=== PATIENT | male | born 1995 | race Caucasian/White ===

== ENCOUNTER 2022-04-08 01:30 | Observation (INO) ==
[2022-04-08] MEDS ORDERED: KETOROLAC 30 MG/1 ML VIAL IV STA (01:41)
[2022-04-08] MEDS ORDERED: SODIUM CHLORIDE 0.9% 1,000 ML IV STA (01:41)
[2022-04-08 02:18] LABS: Basophils # 0.1 10*3/uL (0.0-0.2); Basophils % 0.6 % (0.0-0.8); Eosinophils # 0.2 10*3/uL (0.0-0.87); Eosinophils % 1.7 % (0.00-10.9); Hemoglobin 15.3 GM/DL (14.0-18.0); Immature Granulocytes % 0.4 %; Immature Granulocytes Absolute 0.04 #; Lymphocytes % 26.4 % (21.2-54.2); Mean Corpuscular HGB Conc 34.8 GM/DL (32-36); Mean Corpuscular Volume 84.9 FL (87-102); Mean Platelet Volume 10.3 FL (9.6-12.0); Monocytes # 0.8 10*3/uL (0.11-0.8); Monocytes % 6.6 % (1.7-12.7); Neutrophils % 64.3 % (38.7-73.9); Platelet Count 227 T/CUMM (130-400); Red Blood Count 5.18 MC/CUMM (3.8-5.5); Red Cell Distribution Width 12.3 % (9.3-17.3); White Blood Count 11.4 T/CUMM (4-12)
[2022-04-08 02:28] LABS: Bilirubin,Urine Negative (Negative); Blood, Urine Negative (Negative); Glucose,Urine (UA) Negative (Negative); Ketones,Urine Negative (Negative); Mucus,Urine Many /LPF (Occasional); Nitrite,Urine Negative (Negative); Protein,Urine Negative (Negative); RBC,Urine <1 /HPF (0-4); Squamous Epithelial Cell,Urine Occasional /HPF (0-10); Urine Appearance CLEAR (Clear); Urine Color Yellow (Yellow); Urine Specific Gravity 1.023 (1.001-1.035); Urine Urobilinogen < 2.0 eU/dL (<2.0)
[2022-04-08 02:38] LABS: Albumin 3.9 G/DL (3.4-5.0); Bilirubin,Total 0.6 MG/DL (0.20-1.00); Calcium 8.8 MG/DL (8.5-10.1); Osmolality,Calculated 278.4 MOS/KG (273-304); Potassium 3.4 MMOL/L (3.5-5.1); Total Protein 6.7 G/DL (6.4-8.2)
[2022-04-08] MEDS ORDERED: POTASSIUM CHLORIDE 20 MEQ TABLET PO STA (02:41)
[2022-04-08] MEDS ORDERED: ONDANSETRON 4 MG/2 ML VIAL IV PRN ×2 (03:04→13:38)
[2022-04-08] MEDS ORDERED: HYDROmorphone 1 MG/1 ML SYRINGE IV PRN (03:04)
[2022-04-08] MEDS ORDERED: ACETAMINOPHEN 325 MG TABLET PO PRN (03:04)
[2022-04-08] MEDS ORDERED: SODIUM CHLORIDE 0.9% 1,000 ML IV SCH (03:30)
[2022-04-08] MEDS: PIPERACILLIN/TAZOBACTAM 3,375 MG in SODIUM CHLORIDE 0.9% 100 ML IV SCH ×2 (03:56→14:28)
[2022-04-08] MEDS ORDERED: PANTOPRAZOLE 40 MG VIAL IV SCH (09:00)
[2022-04-08] MEDS ORDERED: MIDAZOLAM 2 MG/2 ML VIAL ONE (11:26)
[2022-04-08] MEDS ORDERED: LIDOCAINE 2% 5 ML VIAL ONE ×2 (11:34→12:13)
[2022-04-08] MEDS ORDERED: SUCCINYLCHOLINE 200 MG/10 ML VIAL ONE (11:34)
[2022-04-08] MEDS ORDERED: propofoL 200 MG/20 ML VIAL IV ONE (11:34)
[2022-04-08] MEDS ORDERED: ROCURONIUM 50 MG/5 ML VIAL IV ONE (11:34)
[2022-04-08] MEDS ORDERED: ONDANSETRON 4 MG/2 ML VIAL ONE (11:34)
[2022-04-08] MEDS ORDERED: SEVOFLURANE 1 UNIT/15 MINUTE INH ONE ×3 (11:34→13:01)
[2022-04-08] MEDS ORDERED: DEXAMETHASONE 4 MG/1 ML VIAL ONE (11:34)
[2022-04-08] MEDS ORDERED: fentaNYL 100 MCG/2 ML VIAL ONE (11:34)
[2022-04-08] MEDS ORDERED: LACTATED RINGERS 1,000 ML IV SCH (12:00)
[2022-04-08] MEDS ORDERED: BUPIVACAINE MPF 0.25% 10 ML VIAL ONE (12:12)
[2022-04-08] MEDS ORDERED: LIDOCAINE 1% 5 ML VIAL ONE (12:13)
[2022-04-08] MEDS ORDERED: SUGAMMADEX 200 MG/2 ML VIAL IV ONE (12:58)
[2022-04-08] MEDS ORDERED: TISSUE ADHESIVE 1 EACH APPLICATOR TOP ONE (13:03)
[2022-04-08] MEDS: HYDROmorphone 1 MG/1 ML SYRINGE IV PRN ×2 (13:43→13:53)
[2022-04-08 15:29] VITALS: BP 153/94
== END 2022-04-08 17:23 | disposition home or self-care (01) ==
LOC: N.3E 01:30 → N.ED 01:30 → N.3E 03:38
PROVIDERS: ADMIT Surgery; ATTEND Surgery